=== PATIENT | female | born 1970 | race Caucasian/White ===

== ENCOUNTER 2021-01-24 18:57 | Inpatient (IN) | payer OTHER ==
[~2021-01-24] VITALS: Ht 162.6 cm; Wt 68.0 kg
--- NOTE | 2021-01-24 19:20 | NUR ---
50 year old female brought in from home for Acute Chest Pain. She reports no prior medical history besides Asthma - surgical history includes a hyterectomy. Patient takes no medications at home besides an albuterol inhaler for her Asthma. Patient is Alert & Orientated and very cooperative. She reports her chest pain is a 7/10. Non-radiating and is localized to the center of her chest. Pain increases and decreases in intensity sporatically. Persists at rest and on exertion. She is Sinus Rhythm on the monitor/12 Lead. Blood Pressure was 168/96 on initial assessment. Lung sounds clear bilaterally. No SOB. No diaphoresis. GI/ functions unimpaired - no N/V/D.
[2021-01-24] MEDS ORDERED: ASPIRIN 325 MG TABLET PO ONE (19:30)
[2021-01-24] MEDS ORDERED: NITROGLYCERIN OINT 1 GM PACKET TP ONE ×2 (19:30→19:34)
[2021-01-24] MEDS ORDERED: ASPIRIN 325 MG TABLET ONE (19:34)
[2021-01-24 19:35] LABS: BASOPHILS # (AUTO) 0.1 K/uL (0.0-8.0); EOSINOPHILS # (AUTO) 0.1 K/uL (0.0-0.7); EOSINOPHILS % (AUTO) 1.3 % (0.0-7.0); HEMATOCRIT 36.6 % (31.2-41.9); HEMOGLOBIN 12.7 g/dL (10.9-14.3); LYMPHOCYTES # (AUTO) 2.9 K/uL (20.0-40.0); MEAN CORPUSCULAR HEMOGLOBIN 29.4 uug (24.7-32.8); MEAN CORPUSCULAR HGB CONC 35 g/dL (32.3-35.6); MEAN CORPUSCULAR VOLUME 85.2 fL (75.5-95.3); MONOCYTES # (AUTO) 0.4 K/uL (2.0-10.0); MONOCYTES % (AUTO) 6.6 % (0.0-11.0); NEUTROPHILS % (AUTO) 46.1 % (38.5-71.5); PLATELET COUNT (AUTO) 288 K/uL (179-408); WHITE BLOOD COUNT (AUTO) 6.4 K/uL (3.8-11.8)
[2021-01-24 19:43] LABS: CREATININE 0.9 mg/dL (0.6-1.3); POTASSIUM 3.5 mmol/L (3.5-5.1)
[2021-01-24 19:49] LABS: BILIRUBIN,DIRECT 0.1 mg/dL (0.0-0.2); BILIRUBIN,TOTAL 0.2 mg/dL (0.2-1.0); TOTAL PROTEIN, SERUM 7.4 g/dL (6.4-8.2)
[2021-01-24] MEDS ORDERED: ALBU18HF2 IH (20:16)
--- NOTE | 2021-01-24 20:16 | NUR ---
Stress test was performed. Patient wasked to stand up and walked down hallway to see if chest pain worsens. Patients pain increased from 4/10 --- 6/10 upon exertion.
[2021-01-24] MEDS ORDERED: NITROGLYCERIN 0.4 MG/TAB BOTTLE SL ONE ×2 (20:45→20:46)
--- NOTE | 2021-01-24 21:39 | NUR ---
Called [facility] to page Arjun Harris NP.
--- NOTE | 2021-01-24 21:46 | NUR ---
Dr. Zhang on panel call with Arjun Harris NP.
[2021-01-24] MEDS ORDERED: FAMOTIDINE 20 MG TABLET PO ONE (22:45)
[2021-01-24] MEDS ORDERED: FAMOTIDINE 20 MG TABLET ONE (22:47)
--- NOTE | 2021-01-24 23:00 | NUR ---
admitted this 50 y..pleasant lady with complaints of chest pain,non radiating,she also has history of asthma. alert,oriented x4, no acute distress noted, skin ,clear.needs attended to, admission care rendered, on tele sinus r/sinus chuyita 59.vitals taken and recorded. allergic to clindamycin.dr. armando marcos notified of admission and orders received
--- NOTE | 2021-01-24 23:07 | NUR ---
Patient transferred to Room 304 in stable condition. Belongings with patient. Report given to Milagro REAGAN.
[2021-01-24 23:22] VITALS: BP 143/84
[2021-01-24] MEDS ORDERED: ALBUTEROL SULFATE 2.5 MG/3 ML NEBU NEB PRN (23:45)
[2021-01-24] MEDS ORDERED: ACETAMINOPHEN 325 MG TABLET PO PRN (23:45)
[2021-01-24] MEDS ORDERED: ZOLPIDEM 5 MG TABLET PO PRN (23:45)
[2021-01-24] MEDS ORDERED: ONDANSETRON 4 MG/2 ML VIAL IV PRN (23:45)
[2021-01-24] MEDS ORDERED: MORPHINE SULFATE 2 MG/1 ML DISP.SYRIN IV PRN (23:45)
[2021-01-24] MEDS ORDERED: Z GUARD REMEDY PASTE 57 GM TUBE TOP PRN (23:45)
[2021-01-25 00:30] VITALS: BP 141/76
[2021-01-25 05:19] VITALS: BP 134/81
--- NOTE | 2021-01-25 05:47 | NUR ---
SLEPT ON AND OFF, KEPT WARM AND COMFORTABLE, FOR ECHO TODAY,LAB WOKS DONE,IN FAIR CONDITION NO CHEST PAIN PRESENTED.SINUSR,SINUS SESAR ,LOWEST AT 45,AT PRESENT IS 62.
[2021-01-25 06:55] LABS: BASOPHILS # (AUTO) 0.1 K/uL (0.0-8.0); BASOPHILS % (AUTO) 1.4 % (0.0-2.0); EOSINOPHILS # (AUTO) 0.1 K/uL (0.0-0.7); EOSINOPHILS % (AUTO) 1.9 % (0.0-7.0); HEMATOCRIT 37.4 % (31.2-41.9); HEMOGLOBIN 12.9 g/dL (10.9-14.3); LYMPHOCYTES # (AUTO) 3.2 K/uL (20.0-40.0); MEAN CORPUSCULAR HEMOGLOBIN 29.8 uug (24.7-32.8); MEAN CORPUSCULAR HGB CONC 34 g/dL (32.3-35.6); MEAN CORPUSCULAR VOLUME 86.5 fL (75.5-95.3); MONOCYTES # (AUTO) 0.4 K/uL (2.0-10.0); MONOCYTES % (AUTO) 5.7 % (0.0-11.0); PLATELET COUNT (AUTO) 240 K/uL (179-408); RED BLOOD CELL COUNT(AUTO) 4.32 MIL/uL (3.63-4.92); WHITE BLOOD COUNT (AUTO) 6.8 K/uL (3.8-11.8)
[2021-01-25] MEDS ORDERED: PANTOPRAZOLE SODIUM 40 MG TABLET.DR PO SCH (07:00)
[2021-01-25 07:05] LABS: BILIRUBIN,TOTAL 0.4 mg/dL (0.2-1.0); CREATININE 0.9 mg/dL (0.6-1.3); MAGNESIUM 1.9 mg/dL (1.8-2.4); PHOSPHOROUS 4.1 mg/dL (2.5-4.9); POTASSIUM 3.6 mmol/L (3.5-5.1); TOTAL PROTEIN, SERUM 7.1 g/dL (6.4-8.2)
[2021-01-25 07:08] LABS: THYROID STIMULATING HORMONE 2.16 mIU/mL (0.358-3.740)
[2021-01-25] MEDS ORDERED: ENOXAPARIN SODIUM 40 MG/0.4 ML DISP.SYRIN SQ SCH (09:00)
[2021-01-25] MEDS ORDERED: ASPIRIN EC 81 MG TABLET.DR PO SCH (09:00)
[2021-01-25 11:40] VITALS: BP 130/84
[2021-01-25] MEDS ORDERED: ASPI-618 PO (15:12)
[2021-01-25] MEDS ORDERED: ATOR40TA PO (15:12)
[2021-01-25] MEDS ORDERED: PANT40TA2 PO (15:12)
[2021-01-25 15:36] VITALS: BP 127/86
--- NOTE | 2021-01-25 16:50 | NUR ---
Patient discharged to home. Patient alert and oriented x 4. On room air. No signs of acute distress. Denies of any pain/ discomfort. Discharge documents given and signed by patient. Belongings accounted for and belongings list signed. IV access removed. ID band removed. Patient wheeled to hospital lobby. Patient picked up by [id number] via private car.
[2021-01-25] MEDS ORDERED: ATORVASTATIN 40 MG TABLET PO SCH (21:00)
== END 2021-01-25 16:45 | disposition home or self-care (01) | DRG 392 ==
LOC: ER 19:30 → TELE3 22:55
PROVIDERS: ADMIT Nurse Practitioner Acute Care; ATTEND Nurse Practitioner Acute Care
DX: K22.4 Dyskinesia of esophagus (principal); E78.5 Hyperlipidemia, unspecified; J45.909 Unspecified asthma, uncomplicated; Z20.822 Contact with and (suspected) exposure to COVID-19
CPT/HCPCS: 36415; 70030-TC; 71045; 83690; 83735; 84100; 84443; 85025; 93005; 93307; A4663; G0378; J1650